=== PATIENT | male | born 1995 | race Two or more races ===

== ENCOUNTER 2019-09-01 15:22 | Inpatient (IN) | payer OTHER ==
[2019-09-01 18:15] VITALS: BMI 29.2
--- NOTE | 2019-09-01 20:28 | HP ---
COWS - Scale Resting Pulse: 0= SC 80 or Below Sweatin=Flushed/Facial Moisture Restless Observation: 1= Difficult to Sit Still Pupil Size: 1= Pupils >than Normal Bone or Joint Aches: 4=Acute Joint/Muscle Pain Runny Nose/ Eye Tearin= Constantly Teary/Runny GI Upset > 30mins: 1= Stomach Cramp Tremor Observation: 2= Slight Tremor Visible Yawning Observation: 2= >3x During Session Anxiety or Irritability: 2=Irritable/Anxious Goose Flesh Skin: 3=Piloerection COWS Score: 22 CIWA Score - Admission Criteria [facility]ASAS Guidelines: Admission for Medically Managed Detox: Requires at least one of the followin. CIWA greater than 12 2. Seizures within the past 24 hours 3. Delirium tremens within the past 24 hours 4. Hallucinations within the past 24 hours 5. Acute intervention needed for co occurring medical disorder 6. Acute intervention needed for co occurring psychiatric disorder 7. Severe withdrawal that cannot be handled at a lower level of care (continued vomiting, continued diarrhea, abnormal vital signs) requiring intravenous medication and/or fluids 8. Admission [facility] Chief Complaint: SEEKING DETOX FOR HEROIN DEPENDENCE Allergies/Adverse Reactions: Allergies Allergy/AdvReac Type Severity Reaction Status Date / Time No Known Allergies Allergy Verified 09/01/19 18:03 History of Present Illness: 24 Y.O. MALE WITH HEROIN AND COCAINE DEPENDENCE HERE FOR ETOX. CLIENT WAS REFERRED BY HIS MOTHER. CLIENT REPORTS DAILY USE OF HEROIN AND COCAINE- SPEED BALLING APPROX 1 BUNDLE DAILY. STATES LAST USE A DAY AND A HALF AGO. HERE NOW WITH COMPLAINTS OF WITHDRAWAL SX'S. DENIES IVDU, OVERDOSE, SEIZURES, AVH, SI/HI , +BLACKOUTS. CLIENT REPORTS HIS LAST TXMENT WAS IN A 6 MONTH [place]HAB [place] 05[place]. THEN CAME TO THE [facility] RELAPSING IN . LIVES WITH FAMILY, UNEMPLOYED, DENIES LEGALS Exam Limitations: No Limitations - Ebola screening Have you traveled outside of the country in the last 21 days: No Have you had contact with anyone from an Ebola affected area: No Have you been sick,other than usual withdrawal symptoms: No Do you have a fever: No - Review of Systems Constitutional: Chills, Loss of Appetite, Malaise, Night Sweats, Changes in sleep EENT: reports: Nose Congestion (RINORRHEA) Respiratory: reports: No Symptoms reported Cardiac: reports: No Symptoms Reported GI: reports: Poor Appetite, Poor Fluid Intake, Abdominal cramping : reports: No Symptoms Reported Musculoskeletal: reports: Joint Pain, Neck Pain Integumentary: reports: Flushing Neuro: reports: Tremors (WITHDRAWAL), Other (BLACK OUTS) Endocrine: reports: No Symptoms Reported Hematology: reports: No Symptoms Reported Psychiatric: reports: Orientated x3, Agitated (IRRITABLE), Anxious, Depressed ( DENIES SI/HI) Other Systems: Reviewed and Negative Patient History - Patient Medical History Hx Anemia: No Hx Asthma: No Hx Chronic Obstructive Pulmonary Disease (COPD): No Hx Cancer: No Hx Cardiac Disorders: No Hx Congestive Heart Failure: No Hx Hypertension: No Hx Hypercholesterolemia: No Hx Pacemaker: No HX Cerebrovascular Accident: No Hx Seizures: No Hx Dementia: No Hx Diabetes: No Hx Gastrointestinal Disorders: No Hx Liver Disease: No Hx Genitourinary Disorders: No Hx Sexually Transmitted Disorders: No Hx Renal Disease (ESRD): No Hx Thyroid Disease: No Hx Human Immunodeficiency Virus (HIV): No Hx Hepatitis C: No Hx Depression: No Hx Suicide Attempt: No Hx Bipolar Disorder: No Hx Schizophrenia: No Other Medical History: DENIES - Patient Surgical History Past Surgical History: No - PPD History Previous Implant?: Yes Documented Results: Negative w/o proof Implanted On Prior [facility] Admission?: No PPD to be Administered?: Yes - Smoking Cessation Smoking history: Current every day smoker Have you smoked in the past 12 months: Yes Aproximately how many cigarettes per day: 20 Cigars Per Day: 0 Hx Chewing Tobacco Use: No Initiated information on smoking cessation: Yes 'Breaking Loose' booklet given: 09/01/19 - Substance & Tx. History Hx Alcohol Use: No Hx Substance Use: Yes Substance Use Type: Cocaine, Heroin Hx Substance Use Treatment: Yes ([facility]) - Substances abused Heroin Substance route: Smoking Frequency: Daily Amount used: 10 bags Age of first use: 24 Date of last use: 08/30/19 Cocaine Substance route: Smoking Frequency: Daily Amount used: 1 gram Age of first use: 24 Date of last use: 08/30/19 Admission Physical Exam BHS - Vital Signs Vital Signs: Vital Signs - 24 hr 09/01/19 18:02 Temperature 98.0 F Pulse Rate 77 Respiratory 16 Rate Blood Pressure 132/83 - Physical General Appearance: Yes: Moderate Distress, Irritable, Anxious HEENTM: Yes: EOMI, Normocephalic, Normal Voice, JOSIAH, Pharynx Normal, Rhinorrhea Respiratory: Yes: Chest Non-Tender, Lungs Clear, Normal Breath Sounds, No Respiratory Distress, No Accessory Muscle Use Neck: Yes: No masses,lesions,Nodules, Supple, Trachea in good position Breast: Yes: Breast Exam Deferred Cardiology: Yes: Regular Rhythm, Regular Rate, S1, S2 Abdominal: Yes: Normal Bowel Sounds, Non Tender, Soft Genitourinary: Yes: Within Normal Limits (NO C/O) Back: Yes: Normal Inspection Musculoskeletal: Yes: full range of Motion, Gait Steady Extremities: Yes: Normal Capillary Refill, Normal Range of Motion, Non-Tender, Other (BLANCHABLE REDNESS NOT TO OUTER ASPECT OF LEFT GREAT TOE WITH SOME DRY TELLOW DC AROUND NAIL BED. APPEARS TO BE A RESOLVING SKIN INFECTION) Neurological: Yes: Fully Oriented, Alert, Motor Strength 5/5, Depressed Affect Integumentary: Yes: Dry, Warm Lymphatic: Yes: Within Normal Limits - Diagnostic (1) Opioid dependence with withdrawal Current Visit: Yes Status: Acute (2) Cocaine dependence, uncomplicated Current Visit: Yes Status: Acute (3) Nicotine dependence Current Visit: Yes Status: Acute Qualifiers: Nicotine product type: cigarettes Substance use status: uncomplicated Qualified Code(s): F17.210 - Nicotine dependence, cigarettes, uncomplicated (4) Depressed affect Current Visit: Yes Status: Acute (5) Substance induced mood disorder Current Visit: Yes Status: Acute Cleared for Admission [facility] - Detox or Rehab [facility] Level of Care: Medically Managed Detox Regimen/Protocol: Methadone Claeared for Rehab Admission: No Breathalyzer - Breathalyzer Breathalyzer: 0 Urine Drug Screen - Test Device Lot number: [id number] Expiration date: 05/02/21 - Control Is test valid?: Yes - Results Drug screen NEGATIVE: No Urine drug screen results: AGUILA-Cocaine, FEN-Fentanyl, MOP-Opiates Inpatient Rehab Admission - Rehab Decision to Admit Inpatient rehab admission?: No
[2019-09-01] MEDS ORDERED: ACETAMINOPHEN 325 MG TABLET (FP) PO PRN ×2 (20:33)
[2019-09-01] MEDS ORDERED: MAGNESIUM HYDROX 2400MG/30ML ORAL SUSPENSION 30 ML CUP PO PRN (20:33)
[2019-09-01] MEDS ORDERED: METHADONE HCL 10 MG TABLET (FOR DETOX USE ONLY) PO ONE (20:33)
[2019-09-01] MEDS ORDERED: MAGNESIUM CITRATE 300 ML BOTTLE PO PRN (20:33)
[2019-09-01] MEDS ORDERED: NICOTINE POLACRILEX 2 MG GUM BUC PRN (20:33)
[2019-09-01] MEDS ORDERED: NALOXONE HCL 0.4 MG/ML VIAL IM PRN (20:33)
[2019-09-01] MEDS ORDERED: P-EPHED 60MG/TRIPROLIDI 2.5MG TABLET PO PRN (20:33)
[2019-09-01] MEDS ORDERED: guaiFENesin 200 MG/10 ML 10 ML UNIT-DOSE CUPS PO PRN (20:33)
[2019-09-01] MEDS ORDERED: IBUPROFEN 400 MG TABLET (FP) PO PRN (20:33)
[2019-09-01] MEDS ORDERED: ONDANSETRON *ODT* 4 MG TABLET SL PRN (20:33)
[2019-09-01] MEDS ORDERED: MENTHOL/PHENOL 1 EACH UD MM PRN (20:33)
[2019-09-01] MEDS ORDERED: BISMUTH SUBSALICYLATE 524 MG/30 ML UD PO PRN (20:33)
[2019-09-01] MEDS ORDERED: MAG HYDROX/AL HYDROX/SIMETH 30 ML UNIT-DOSE CUP PO PRN (20:33)
[2019-09-01] MEDS ORDERED: DICYCLOMINE HCL 10 MG CAPSULE PO PRN (20:33)
[2019-09-01] MEDS: THIAMINE HCL 100 MG TABLET (FP) PO SCH (22:02)
[2019-09-01] MEDS: hydrOXYzine PAMOATE 25 MG CAPSULE (FP) PO PRN (22:08)
[2019-09-02] MEDS ORDERED: METHADONE HCL 10 MG TABLET (FOR DETOX USE ONLY) ONE (08:57)
[2019-09-02] MEDS ORDERED: METHADONE HCL 5 MG TABLET (FOR DETOX USE ONLY) ONE (08:58)
[2019-09-02] MEDS ORDERED: METHADONE (DETOX) 20 MG, METHADONE (DETOX) 5 MG PO ONE (10:00)
[2019-09-02] MEDS: PRENATAL VITAMINS W/ FOLIC ACID TABLET (FP) PO SCH (10:18)
[2019-09-02] MEDS: NICOTINE 21 MG/24 HOURS TOPICAL PATCH TD SCH (10:19)
[2019-09-02 10:55] LABS: HEMATOCRIT 42.1 % (35.4-49); MCH 29.3 pg (25.7-33.7); MCHC 33.3 g/dl (32.0-35.9); MEAN CELL VOLUME 88.2 fl (80-96); MEAN PLT VOLUME 9.3 fl (7.5-11.1); PLATELET COUNT 260 K/MM3 (134-434); RBC 4.77 M/mm3 (4.00-5.60); RDW 12.9 % (11.9-15.9); WHITE BLOOD COUNT 8.5 K/mm3 (4.0-10.0)
[2019-09-02 11:00] LABS: ALBUMIN 3.5 g/dl (3.4-5.0); BILIRUBIN,TOTAL 0.2 mg/dL (0.2-1); BLOOD UREA NITROGEN 11.4 mg/dL (7-18); CALCIUM 8.9 mg/dL (8.5-10.1); CREATININE 0.8 mg/dL (0.55-1.3); POTASSIUM 3.5 mmol/L (3.5-5.1); TOT PROT 6.2 g/dl (6.4-8.2)
--- NOTE | 2019-09-02 11:23 | PN ---
BHS COWS - Scale Resting Pulse: 1= [place] 81-100 Sweatin= Beads of Sweat on Face Restless Observation: 1= Difficult to Sit Still Pupil Size: 0= Normal to Room Light Bone or Joint Aches: 2= Severe Diffuse Aches Runny Nose/ Eye Tearin= None GI Upset > 30mins: 0= None Tremor Observation of Outstretched Hands: 0= None Yawning Observation: 1= 1-2x During Session Anxiety or Irritability: 2=Irritable/Anxious Goose Flesh Skin: 0=Smooth Skin COWS Score: 10 S Progress Note (SOAP) Subjective: c/o muscle aches, anxiety, and sweats. Objective: 09/02/19 11:21 Vital Signs 09/02/19 09/02/19 09/02/19 03:30 06:28 09:10 Temperature 98 F 98.1 F Pulse Rate 84 87 Respiratory 18 18 18 Rate Blood Pressure 126/69 117/79 Laboratory Last Values WBC 8.5 K/mm3 (4.0-10.0) 09/02/19 07:50 RBC 4.77 M/mm3 (4.00-5.60) 09/02/19 07:50 Hgb 14.0 GM/dL (11.7-16.9) 09/02/19 07:50 Hct 42.1 % (35.4-49) 09/02/19 07:50 MCV 88.2 fl (80-96) 09/02/19 07:50 MCH 29.3 pg (25.7-33.7) 09/02/19 07:50 MCHC 33.3 g/dl (32.0-35.9) 09/02/19 07:50 RDW 12.9 % (11.9-15.9) 09/02/19 07:50 Plt Count 260 K/MM3 (134-434) 09/02/19 07:50 MPV 9.3 fl (7.5-11.1) 09/02/19 07:50 Sodium 141 mmol/L (136-145) 09/02/19 07:50 Potassium 3.5 mmol/L (3.5-5.1) 09/02/19 07:50 Chloride 107 mmol/L (98-107) 09/02/19 07:50 Carbon Dioxide 27 mmol/L (21-32) 09/02/19 07:50 Anion Gap 7 MMOL/L (8-16) L 09/02/19 07:50 BUN 11.4 mg/dL (7-18) 09/02/19 07:50 Creatinine 0.8 mg/dL (0.55-1.3) 09/02/19 07:50 Est GFR (CKD-EPI)AfAm 146.96 09/02/19 07:50 Est GFR (CKD-EPI)NonAf 126.80 09/02/19 07:50 Random Glucose 77 mg/dL (74-106) 09/02/19 07:50 Calcium 8.9 mg/dL (8.5-10.1) 09/02/19 07:50 Total Bilirubin 0.2 mg/dL (0.2-1) 09/02/19 07:50 AST 12 U/L (15-37) L 09/02/19 07:50 ALT 26 U/L (13-61) 09/02/19 07:50 Alkaline Phosphatase 62 U/L (45-117) 09/02/19 07:50 Total Protein 6.2 g/dl (6.4-8.2) L 09/02/19 07:50 Albumin 3.5 g/dl (3.4-5.0) 09/02/19 07:50 Labs noted. Assessment: 09/02/19 11:22 AOX3, in no acute respiratory distress. Full ROM, ambulating in the unit. withdrawal symptoms. Plan: continue detox.
--- NOTE | 2019-09-02 13:23 | CONSULT ---
[facility] Psychiatric Consult - Data Date of interview: 09/02/19 Admission source: [facility] Identifying data: First admission to [facility] for this 24 y/o male from [place] ancestry, self-referred for detoxification (TRAVIS issues : heroin, crack/cocaine, nicotine). Interviewed at [address] [place] [address]. Patient is single, no dependents, domiciled and currently employed. Substance Abuse History: Discussed in this session. Details in current [facility] report as follows : Smoking history: Current every day smoker. Have you smoked in the past 12 months: Yes. Aproximately how many cigarettes per day: 20. Cigars Per Day: 0. Hx Chewing Tobacco Use: No. Initiated information on smoking cessation: Yes. 'Breaking Loose' booklet given: 09/01/19. - Substance & Tx. History. Hx Alcohol Use: No. Hx Substance Use: Yes. Substance Use Type : Cocaine, Heroin. Hx Substance Use Treatment: Yes ([facility]). - Substances abused. Heroin. Substance route: Smoking. Frequency: Daily. Amount used: 10 bags. Age of first use: 24. Date of last use: 08/30/19. Cocaine. Substance route: Smoking. Frequency: Daily. Amount used: 1 gram. Age of first use: 24. Date of last use: 08/30/19 Medical History: Patient endorses good general health. Psychiatric History: Patient denies. Physical/Sexual Abuse/Trauma History: Patient denies. Additional Comment: Urine drug screen results: AGUILA-Cocaine, FEN-Fentanyl, MOP- Opiates. Noted. Mental Status Exam - Mental Status Exam Alert and Oriented to: Time, Place, Person Cognitive Function: Good Patient Appearance: Well Groomed Mood: Withdrawn, Hopeful Affect: Appropriate, Normal Range Patient Behavior: Fatigued, Cooperative Speech Pattern: Clear Voice Loudness: Normal Thought Process: Intact, Goal Oriented Thought Disorder: Not Present Hallucinations: Denies Suicidal Ideation: Denies Homicidal Ideation: Denies Insight/Judgement: Poor Sleep: Well Appetite: Good Gait/Station: Other (not observed; supine for entire interview) Psychiatric Findings - Problem List ([place] 1, 2,3) (1) Opioid dependence with withdrawal Current Visit: Yes Status: Acute (2) Cocaine dependence, uncomplicated Current Visit: Yes Status: Chronic (3) Nicotine dependence Current Visit: Yes Status: Chronic Qualifiers: Nicotine product type: cigarettes Substance use status: uncomplicated Qualified Code(s): F17.210 - Nicotine dependence, cigarettes, uncomplicated - Initial Treatment Plan Initial Treatment Plan: Psychoeducation. Sleep hygiene. Detoxification. MAT services discussed with patient. NA meetings. Observation.
[2019-09-02] MEDS: METHOCARBAMOL 500 MG TABLET PO PRN (22:08)
[2019-09-02] MEDS: THIAMINE HCL 100 MG TABLET (FP) PO SCH (22:08)
[2019-09-02] MEDS: hydrOXYzine PAMOATE 25 MG CAPSULE (FP) PO PRN (22:08)
[2019-09-02] MEDS: MELATONIN 5 MG TABLETS PO PRN (23:46)
[2019-09-03] MEDS ORDERED: METHADONE HCL 10 MG TABLET (FOR DETOX USE ONLY) PO ONE (10:00)
[2019-09-03] MEDS: cloNIDine HCL 0.1 MG TABLET PO PRN ×2 (10:11→22:16)
[2019-09-03] MEDS: PRENATAL VITAMINS W/ FOLIC ACID TABLET (FP) PO SCH (10:11)
[2019-09-03] MEDS: NICOTINE 21 MG/24 HOURS TOPICAL PATCH TD SCH (10:11)
--- NOTE | 2019-09-03 10:12 | PN ---
BHS COWS - Scale Resting Pulse: 0= SC 80 or Below Sweatin= Chills/Flushing Restless Observation: 0= Sits Still Pupil Size: 1= Pupils >than Normal Bone or Joint Aches: 1= Mild Discomfort Runny Nose/ Eye Tearin= Nasal Congestion GI Upset > 30mins: 1= Stomach Cramp Tremor Observation of Outstretched Hands: 2= Slight Tremor Visible Yawning Observation: 0= None Anxiety or Irritability: 2=Irritable/Anxious Goose Flesh Skin: 0=Smooth Skin COWS Score: 9 BHS Progress Note (SOAP) Subjective: 24 years old male admitted on 09/01/19 for opiate withdrawal sx management treated with methadone detox regimen patient tolerated well discuss medication assisted treatment program encourage hand picker narcan from pharmacy Objective: 09/03/19 10:12 Vital Signs Temperature 96.0 F L 09/03/19 09:14 Pulse Rate 64 09/03/19 09:14 Respiratory Rate 18 09/03/19 09:14 Blood Pressure 114/70 09/03/19 09:14 O2 Sat by Pulse Oximetry (%) Laboratory Last Values WBC 8.5 K/mm3 (4.0-10.0) 09/02/19 07:50 RBC 4.77 M/mm3 (4.00-5.60) 09/02/19 07:50 Hgb 14.0 GM/dL (11.7-16.9) 09/02/19 07:50 Hct 42.1 % (35.4-49) 09/02/19 07:50 MCV 88.2 fl (80-96) 09/02/19 07:50 MCH 29.3 pg (25.7-33.7) 09/02/19 07:50 MCHC 33.3 g/dl (32.0-35.9) 09/02/19 07:50 RDW 12.9 % (11.9-15.9) 09/02/19 07:50 Plt Count 260 K/MM3 (134-434) 09/02/19 07:50 MPV 9.3 fl (7.5-11.1) 09/02/19 07:50 Sodium 141 mmol/L (136-145) 09/02/19 07:50 Potassium 3.5 mmol/L (3.5-5.1) 09/02/19 07:50 Chloride 107 mmol/L (98-107) 09/02/19 07:50 Carbon Dioxide 27 mmol/L (21-32) 09/02/19 07:50 Anion Gap 7 MMOL/L (8-16) L 09/02/19 07:50 BUN 11.4 mg/dL (7-18) 09/02/19 07:50 Creatinine 0.8 mg/dL (0.55-1.3) 09/02/19 07:50 Est GFR (CKD-EPI)AfAm 146.96 09/02/19 07:50 Est GFR (CKD-EPI)NonAf 126.80 09/02/19 07:50 Random Glucose 77 mg/dL (74-106) 09/02/19 07:50 Calcium 8.9 mg/dL (8.5-10.1) 09/02/19 07:50 Total Bilirubin 0.2 mg/dL (0.2-1) 09/02/19 07:50 AST 12 U/L (15-37) L 09/02/19 07:50 ALT 26 U/L (13-61) 09/02/19 07:50 Alkaline Phosphatase 62 U/L (45-117) 09/02/19 07:50 Total Protein 6.2 g/dl (6.4-8.2) L 09/02/19 07:50 Albumin 3.5 g/dl (3.4-5.0) 09/02/19 07:50 lab noted Assessment: 09/03/19 10:12 opiate withdrawal sx Plan: continue methadone detox regimen
[2019-09-03] MEDS: THIAMINE HCL 100 MG TABLET (FP) PO SCH (22:14)
[2019-09-03] MEDS: MELATONIN 5 MG TABLETS PO PRN (22:16)
[2019-09-04] MEDS ORDERED: METHADONE HCL 10 MG TABLET (FOR DETOX USE ONLY) ONE (08:34)
[2019-09-04] MEDS ORDERED: METHADONE HCL 5 MG TABLET (FOR DETOX USE ONLY) ONE (08:34)
[2019-09-04] MEDS ORDERED: METHADONE (DETOX) 10 MG, METHADONE (DETOX) 5 MG PO ONE (10:00)
[2019-09-04] MEDS: PRENATAL VITAMINS W/ FOLIC ACID TABLET (FP) PO SCH (10:28)
[2019-09-04] MEDS: hydrOXYzine PAMOATE 25 MG CAPSULE (FP) PO PRN ×2 (10:31→21:34)
[2019-09-04] MEDS: METHOCARBAMOL 500 MG TABLET PO PRN ×2 (10:31→21:34)
[2019-09-04] MEDS: NICOTINE 21 MG/24 HOURS TOPICAL PATCH TD SCH (10:32)
--- NOTE | 2019-09-04 12:01 | EKG ---
Test Reason : Blood Pressure : / mmHG Vent. Rate : 075 BPM Atrial Rate : 075 BPM P-R Int : 142 ms QRS Dur : 094 ms QT Int : 406 ms P-R-T Axes : 057 065 060 degrees QTc Int : 453 ms NORMAL SINUS RHYTHM WITH SINUS ARRHYTHMIA NORMAL ECG WHEN COMPARED WITH ECG OF 01-SEP-2019 21:08, NO SIGNIFICANT CHANGE WAS FOUND Confirmed by JIMMY GASPAR MD ([id number]) on 09/04/2019 12:00:56 PM Referred By: Abdulaziz NIEVES NET FRONT END DEVELOPER Confirmed By:JIMMY GASPAR MD
--- NOTE | 2019-09-04 12:02 | EKG ---
Test Reason : Blood Pressure : / mmHG Vent. Rate : 078 BPM Atrial Rate : 078 BPM P-R Int : 136 ms QRS Dur : 096 ms QT Int : 408 ms P-R-T Axes : 027 059 040 degrees QTc Int : 465 ms NORMAL SINUS RHYTHM NORMAL ECG NO PREVIOUS ECGS AVAILABLE Confirmed by JIMMY GASPAR MD ([id number]) on 09/04/2019 12:02:12 PM Referred By: Confirmed By:JIMMY GASPAR MD
--- NOTE | 2019-09-04 13:37 | PN ---
BHS COWS - Scale Resting Pulse: 0= [place] 80 or Below Sweatin= Chills/Flushing Restless Observation: 0= Sits Still Pupil Size: 0= Normal to Room Light Bone or Joint Aches: 1= Mild Discomfort Runny Nose/ Eye Tearin= Nasal Congestion GI Upset > 30mins: 1= Stomach Cramp Tremor Observation of Outstretched Hands: 1= Tremor [place], Not Seen Yawning Observation: 0= None Anxiety or Irritability: 1=Feels Anxious/Irritable Goose Flesh Skin: 0=Smooth Skin COWS Score: 6 BHS Progress Note (SOAP) Subjective: 24 years old male admitted on 09/01/19 for opiate withdrawal sx management treated with methadone detox regimen less body aches mild tremor sleep better at night Objective: 09/04/19 13:36 Vital Signs Temperature 98.8 F 09/04/19 13:11 Pulse Rate 56 L 09/04/19 13:11 Respiratory Rate 18 09/04/19 13:11 Blood Pressure 90/54 L 09/04/19 13:11 O2 Sat by Pulse Oximetry (%) Laboratory Last Values WBC 8.5 K/mm3 (4.0-10.0) 09/02/19 07:50 RBC 4.77 M/mm3 (4.00-5.60) 09/02/19 07:50 Hgb 14.0 GM/dL (11.7-16.9) 09/02/19 07:50 Hct 42.1 % (35.4-49) 09/02/19 07:50 MCV 88.2 fl (80-96) 09/02/19 07:50 MCH 29.3 pg (25.7-33.7) 09/02/19 07:50 MCHC 33.3 g/dl (32.0-35.9) 09/02/19 07:50 RDW 12.9 % (11.9-15.9) 09/02/19 07:50 Plt Count 260 K/MM3 (134-434) 09/02/19 07:50 MPV 9.3 fl (7.5-11.1) 09/02/19 07:50 Sodium 141 mmol/L (136-145) 09/02/19 07:50 Potassium 3.5 mmol/L (3.5-5.1) 09/02/19 07:50 Chloride 107 mmol/L (98-107) 09/02/19 07:50 Carbon Dioxide 27 mmol/L (21-32) 09/02/19 07:50 Anion Gap 7 MMOL/L (8-16) L 09/02/19 07:50 BUN 11.4 mg/dL (7-18) 09/02/19 07:50 Creatinine 0.8 mg/dL (0.55-1.3) 09/02/19 07:50 Est GFR (CKD-EPI)AfAm 146.96 09/02/19 07:50 Est GFR (CKD-EPI)NonAf 126.80 09/02/19 07:50 Random Glucose 77 mg/dL (74-106) 09/02/19 07:50 Calcium 8.9 mg/dL (8.5-10.1) 09/02/19 07:50 Total Bilirubin 0.2 mg/dL (0.2-1) 09/02/19 07:50 AST 12 U/L (15-37) L 09/02/19 07:50 ALT 26 U/L (13-61) 09/02/19 07:50 Alkaline Phosphatase 62 U/L (45-117) 09/02/19 07:50 Total Protein 6.2 g/dl (6.4-8.2) L 09/02/19 07:50 Albumin 3.5 g/dl (3.4-5.0) 09/02/19 07:50 lab noted Assessment: 09/04/19 13:37 opiate withdrawal sx Plan: continue methadone detox regimen
[2019-09-04] MEDS: THIAMINE HCL 100 MG TABLET (FP) PO SCH (21:32)
[2019-09-05] MEDS: MELATONIN 5 MG TABLETS PO PRN (00:26)
[2019-09-05] MEDS: hydrOXYzine PAMOATE 25 MG CAPSULE (FP) PO PRN (06:44)
[2019-09-05 09:12] VITALS: BP 115/73; PULSE 76; TEMP 98.9
[2019-09-05] MEDS ORDERED: METHADONE HCL 10 MG TABLET (FOR DETOX USE ONLY) PO ONE (10:00)
--- NOTE | 2019-09-05 10:01 | PN ---
BHS COWS - Scale Resting Pulse: 0= [place] 80 or Below Sweatin= Chills/Flushing Restless Observation: 0= Sits Still Pupil Size: 1= Pupils >than Normal Bone or Joint Aches: 1= Mild Discomfort Runny Nose/ Eye Tearin= None GI Upset > 30mins: 0= None Tremor Observation of Outstretched Hands: 0= None Yawning Observation: 0= None Anxiety or Irritability: 1=Feels Anxious/Irritable Goose Flesh Skin: 0=Smooth Skin COWS Score: 4 BHS Progress Note (SOAP) Subjective: 24 years old male admitted on 09/01/19 for opiate withdrawal sx management treated with methadone detox regimen ate breakfast limited conversation with staff resting on bed prefers to stay in bed today Objective: 09/05/19 10:00 Vital Signs Temperature 98.9 F 09/05/19 09:11 Pulse Rate 76 09/05/19 09:11 Respiratory Rate 18 09/05/19 09:11 Blood Pressure 115/73 09/05/19 09:11 O2 Sat by Pulse Oximetry (%) Laboratory Last Values WBC 8.5 K/mm3 (4.0-10.0) 09/02/19 07:50 RBC 4.77 M/mm3 (4.00-5.60) 09/02/19 07:50 Hgb 14.0 GM/dL (11.7-16.9) 09/02/19 07:50 Hct 42.1 % (35.4-49) 09/02/19 07:50 MCV 88.2 fl (80-96) 09/02/19 07:50 MCH 29.3 pg (25.7-33.7) 09/02/19 07:50 MCHC 33.3 g/dl (32.0-35.9) 09/02/19 07:50 RDW 12.9 % (11.9-15.9) 09/02/19 07:50 Plt Count 260 K/MM3 (134-434) 09/02/19 07:50 MPV 9.3 fl (7.5-11.1) 09/02/19 07:50 Sodium 141 mmol/L (136-145) 09/02/19 07:50 Potassium 3.5 mmol/L (3.5-5.1) 09/02/19 07:50 Chloride 107 mmol/L (98-107) 09/02/19 07:50 Carbon Dioxide 27 mmol/L (21-32) 09/02/19 07:50 Anion Gap 7 MMOL/L (8-16) L 09/02/19 07:50 BUN 11.4 mg/dL (7-18) 09/02/19 07:50 Creatinine 0.8 mg/dL (0.55-1.3) 09/02/19 07:50 Est GFR (CKD-EPI)AfAm 146.96 09/02/19 07:50 Est GFR (CKD-EPI)NonAf 126.80 09/02/19 07:50 Random Glucose 77 mg/dL (74-106) 09/02/19 07:50 Calcium 8.9 mg/dL (8.5-10.1) 09/02/19 07:50 Total Bilirubin 0.2 mg/dL (0.2-1) 09/02/19 07:50 AST 12 U/L (15-37) L 09/02/19 07:50 ALT 26 U/L (13-61) 09/02/19 07:50 Alkaline Phosphatase 62 U/L (45-117) 09/02/19 07:50 Total Protein 6.2 g/dl (6.4-8.2) L 09/02/19 07:50 Albumin 3.5 g/dl (3.4-5.0) 09/02/19 07:50 lab noted Assessment: 09/05/19 10:00 opiate withdrawal sx Plan: continue methadone detox regimen strong recommend the patient seeks medication assisted treatment program and crop picker narcan from pharmacy
[2019-09-05] MEDS: PRENATAL VITAMINS W/ FOLIC ACID TABLET (FP) PO SCH (10:13)
[2019-09-05] MEDS: NICOTINE 21 MG/24 HOURS TOPICAL PATCH TD SCH (10:13)
--- NOTE | 2019-09-05 12:15 | DS ---
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 will be informed by the nurse that routine discharge is appropriated - Physical Exam Results Vital Signs: Vital Signs Temperature 98.9 F 09/05/19 09:11 Pulse Rate 76 09/05/19 09:11 Respiratory Rate 18 09/05/19 09:11 Blood Pressure 115/73 09/05/19 09:11 O2 Sat by Pulse Oximetry (%) Pertinent Admission Physical Exam Findings: opiate withdrawal sx Laboratory Last Values WBC 8.5 K/mm3 (4.0-10.0) 09/02/19 07:50 RBC 4.77 M/mm3 (4.00-5.60) 09/02/19 07:50 Hgb 14.0 GM/dL (11.7-16.9) 09/02/19 07:50 Hct 42.1 % (35.4-49) 09/02/19 07:50 MCV 88.2 fl (80-96) 09/02/19 07:50 MCH 29.3 pg (25.7-33.7) 09/02/19 07:50 MCHC 33.3 g/dl (32.0-35.9) 09/02/19 07:50 RDW 12.9 % (11.9-15.9) 09/02/19 07:50 Plt Count 260 K/MM3 (134-434) 09/02/19 07:50 MPV 9.3 fl (7.5-11.1) 09/02/19 07:50 Sodium 141 mmol/L (136-145) 09/02/19 07:50 Potassium 3.5 mmol/L (3.5-5.1) 09/02/19 07:50 Chloride 107 mmol/L (98-107) 09/02/19 07:50 Carbon Dioxide 27 mmol/L (21-32) 09/02/19 07:50 Anion Gap 7 MMOL/L (8-16) L 09/02/19 07:50 BUN 11.4 mg/dL (7-18) 09/02/19 07:50 Creatinine 0.8 mg/dL (0.55-1.3) 09/02/19 07:50 Est GFR (CKD-EPI)AfAm 146.96 09/02/19 07:50 Est GFR (CKD-EPI)NonAf 126.80 09/02/19 07:50 Random Glucose 77 mg/dL (74-106) 09/02/19 07:50 Calcium 8.9 mg/dL (8.5-10.1) 09/02/19 07:50 Total Bilirubin 0.2 mg/dL (0.2-1) 09/02/19 07:50 AST 12 U/L (15-37) L 09/02/19 07:50 ALT 26 U/L (13-61) 09/02/19 07:50 Alkaline Phosphatase 62 U/L (45-117) 09/02/19 07:50 Total Protein 6.2 g/dl (6.4-8.2) L 09/02/19 07:50 Albumin 3.5 g/dl (3.4-5.0) 09/02/19 07:50 lab noted - Treatment Hospital Course: Detox Protocol Followed, Detoxed Safely, Responded well, Discharged Condition Good, Rehab Referral Accepted Patient has Accepted a [facility] Referral to: [facility] - Medication Discharge Medications: Ambulatory Orders Naloxone HCl [Narcan] 4 mg NS ASDIR PRN #1 spray 09/03/19 - Diagnosis (1) Alcohol dependence, uncomplicated Status: Acute (2) Sedative, hypnotic or anxiolytic abuse, uncomplicated Status: Acute (3) Opioid dependence with withdrawal Status: Acute (4) Substance induced mood disorder Status: Suspected - AMA Did Patient Leave Against Medical Advice: No
[2019-09-06] MEDS ORDERED: METHADONE HCL 5 MG TABLET (FOR DETOX USE ONLY) PO ONE (06:00)
== END 2019-09-05 12:34 | disposition home or self-care (01) | DRG 773 ==
LOC: YASAS 15:22 → Y3N 20:40
PROVIDERS: ADMIT Allergy & Immunology; ATTEND Allergy & Immunology
PROC: HZ2ZZZZ Detoxification Services for Substance Abuse Treatment (ICD-10-PCS; principal; 2019-09-01)
DX: F11.23 Opioid dependence with withdrawal (principal); F10.20 Alcohol dependence, uncomplicated; F13.10 Sedative, hypnotic or anxiolytic abuse, uncomplicated; F14.20 Cocaine dependence, uncomplicated; F17.210 Nicotine dependence, cigarettes, uncomplicated; F19.24 Other psychoactive substance dependence with psychoactive substance-induced mood disorder; R45.89 Other symptoms and signs involving emotional state
CPT/HCPCS: 36415; 80053; 85027; 86593; 93005; 93010; J0735